=== PATIENT | female | born 1980 | race Two or more races ===

== ENCOUNTER 2017-07-13 09:10 | Observation (INO) | payer MEDICAID ==
[~2017-07-13] VITALS: Ht 160 cm; Wt 79.8 kg
[2017-07-13] MEDS ORDERED: HYDR250I6 IM (10:10)
[2017-07-13] MEDS ORDERED: PREN-96 PO (10:10)
[2017-07-13] MEDS ORDERED: BETAMETHASONE ACET (6MG/ML) 5ML VIAL IM ONE (10:30)
[2017-07-14] MEDS ORDERED: NIF10C PO (10:52)
== END 2017-07-13 10:55 | disposition home or self-care (01) | DRG 563 ==
LOC: LDRP 09:10
PROVIDERS: ADMIT Obstetrics & Gynecology; ATTEND Obstetrics & Gynecology
DX: O60.03 Preterm labor without delivery, third trimester (principal); O26.893 Other specified pregnancy related conditions, third trimester; N89.8 Other specified noninflammatory disorders of vagina; Z3A.31 31 weeks gestation of pregnancy
CPT/HCPCS: 59025; 76805; 81002; G0378; J0702; 96372

== ENCOUNTER 2017-07-14 10:15 | Observation (INO) | payer MEDICAID ==
[~2017-07-14 10:15] MED LIST: HYDR250I6 IM; PREN-96 PO
[2017-07-14] MEDS ORDERED: BETAMETHASONE ACET (6MG/ML) 5ML VIAL IM ONE (10:45)
[2017-07-14] MEDS ORDERED: NIF10C PO (10:52)
== END 2017-07-14 11:35 | disposition home or self-care (01) | DRG 563 ==
LOC: LDRP 10:15
PROVIDERS: ADMIT Obstetrics & Gynecology; ATTEND Obstetrics & Gynecology
DX: O60.03 Preterm labor without delivery, third trimester (principal); Z3A.30 30 weeks gestation of pregnancy
CPT/HCPCS: 59025; 81002; 96372; G0378

== ENCOUNTER 2017-07-21 10:45 | Observation (INO) | payer MEDICAID ==
[~2017-07-21 10:45] MED LIST changes: +NIF10C PO
== END 2017-07-21 11:45 | disposition home or self-care (01) | DRG 563 ==
LOC: LDRP 10:45
PROVIDERS: ADMIT Specialist; ATTEND Specialist
DX: O60.03 Preterm labor without delivery, third trimester (principal); Z3A.31 31 weeks gestation of pregnancy
CPT/HCPCS: 59025; 81002; G0378

== ENCOUNTER 2017-07-28 11:20 | Observation (INO) | payer MEDICAID | END 2017-07-28 12:55 | disposition home or self-care (01) | DRG 563 | LOC: LDRP 11:20 | PROVIDERS: ADMIT Specialist; ATTEND Specialist | DX: O60.03 Preterm labor without delivery, third trimester (principal); Z3A.32 32 weeks gestation of pregnancy | CPT/HCPCS: 59025; 76815; 81002; G0378 ==

== ENCOUNTER 2017-08-03 09:35 | Observation (INO) | payer MEDICAID | END 2017-08-03 10:50 | disposition home or self-care (01) | DRG 563 | LOC: LDRP 09:35 | PROVIDERS: ADMIT Specialist; ATTEND Specialist | DX: O60.03 Preterm labor without delivery, third trimester (principal); Z3A.32 32 weeks gestation of pregnancy | CPT/HCPCS: 59025; 81002; G0378 ==

== ENCOUNTER 2017-08-10 09:00 | Observation (INO) | payer MEDICAID | END 2017-08-10 10:03 | disposition home or self-care (01) | DRG 563 | LOC: LDRP 09:00 | PROVIDERS: ADMIT Specialist; ATTEND Specialist | DX: O60.03 Preterm labor without delivery, third trimester (principal); Z3A.33 33 weeks gestation of pregnancy | CPT/HCPCS: 59025; 81002; G0378 ==

== ENCOUNTER 2017-08-17 09:55 | Observation (INO) | payer MEDICAID | END 2017-08-17 10:35 | disposition home or self-care (01) | DRG 563 | LOC: LDRP 09:55 | PROVIDERS: ADMIT Obstetrics & Gynecology; ATTEND Obstetrics & Gynecology | DX: O60.03 Preterm labor without delivery, third trimester (principal); O09.523 Supervision of elderly multigravida, third trimester; Z3A.34 34 weeks gestation of pregnancy | CPT/HCPCS: 59025; 81002; G0378 ==

== ENCOUNTER 2017-08-24 09:05 | Observation (INO) | payer MEDICAID | END 2017-08-24 10:00 | disposition home or self-care (01) | DRG 563 | LOC: LDRP 09:05 | PROVIDERS: ADMIT Specialist; ATTEND Specialist | DX: O60.03 Preterm labor without delivery, third trimester (principal); O26.893 Other specified pregnancy related conditions, third trimester; N89.8 Other specified noninflammatory disorders of vagina; Z3A.35 35 weeks gestation of pregnancy | CPT/HCPCS: 59025; 81002; G0378 ==

== ENCOUNTER 2017-08-28 09:05 | Observation (INO) | payer MEDICAID | END 2017-08-28 10:05 | disposition home or self-care (01) | DRG 563 | LOC: LDRP 09:05 | PROVIDERS: ADMIT Obstetrics & Gynecology; ATTEND Obstetrics & Gynecology | DX: O60.03 Preterm labor without delivery, third trimester (principal); O09.523 Supervision of elderly multigravida, third trimester; Z3A.36 36 weeks gestation of pregnancy | CPT/HCPCS: 59025; 81002; G0378 ==

== ENCOUNTER 2017-09-04 09:05 | Observation (INO) | payer MEDICAID | END 2017-09-04 13:25 | disposition home or self-care (01) | DRG 566 | LOC: LDRP 09:05 | PROVIDERS: ADMIT Specialist; ATTEND Specialist | DX: O36.8130 Decreased fetal movements, third trimester, not applicable or unspecified (principal); O09.523 Supervision of elderly multigravida, third trimester; Z3A.37 37 weeks gestation of pregnancy | CPT/HCPCS: 59025; 76815; 76818; 81002; G0378 ==

== ENCOUNTER 2017-09-05 09:00 | Observation (INO) | payer MEDICAID | END 2017-09-05 10:45 | disposition home or self-care (01) | DRG 566 | LOC: LDRP 09:00 | PROVIDERS: ADMIT Obstetrics & Gynecology; ATTEND Obstetrics & Gynecology | DX: O41.03X0 Oligohydramnios, third trimester, not applicable or unspecified (principal); O09.523 Supervision of elderly multigravida, third trimester; Z3A.37 37 weeks gestation of pregnancy | CPT/HCPCS: 59025; 76818; 81002; G0378 ==

== ENCOUNTER 2017-09-06 08:00 | Observation (INO) | payer MEDICAID | END 2017-09-06 09:00 | disposition home or self-care (01) | DRG 563 | LOC: LDRP 08:00 | PROVIDERS: ADMIT Specialist; ATTEND Specialist | DX: O60.03 Preterm labor without delivery, third trimester (principal); O09.523 Supervision of elderly multigravida, third trimester; Z3A.37 37 weeks gestation of pregnancy | CPT/HCPCS: 59025; 76815; 81002; G0378 ==

== ENCOUNTER 2017-09-07 08:05 | Observation (INO) | payer MEDICAID ==
[~2017-09-07] VITALS: Ht 167.6 cm; Wt 86.2 kg
[~2017-09-07 08:05] MED LIST changes: -HYDR250I6 IM; -NIF10C PO
[2017-09-07] MEDS ORDERED: LACTATED RINGER'S 1,000 ML IV ONE (09:25)
== END 2017-09-07 10:25 | disposition home or self-care (01) | DRG 566 ==
LOC: LDRP 08:05
PROVIDERS: ADMIT Specialist; ATTEND Specialist
DX: O26.893 Other specified pregnancy related conditions, third trimester (principal); O09.523 Supervision of elderly multigravida, third trimester; M54.9 Dorsalgia, unspecified; Z3A.37 37 weeks gestation of pregnancy
CPT/HCPCS: 59025; 76815; 81002; 96360; G0378; 96365; 96366

== ENCOUNTER 2017-09-08 08:05 | Observation (INO) | payer MEDICAID | END 2017-09-08 10:25 | disposition home or self-care (01) | DRG 566 | LOC: LDRP 08:05 | PROVIDERS: ADMIT Specialist; ATTEND Specialist | DX: O41.03X0 Oligohydramnios, third trimester, not applicable or unspecified (principal); Z3A.38 38 weeks gestation of pregnancy | CPT/HCPCS: 76815; G0378; 59025; 81002 ==

== ENCOUNTER 2017-09-09 08:06 | Observation (INO) | payer MEDICAID | END 2017-09-09 10:12 | disposition home or self-care (01) | DRG 566 | LOC: LDRP 08:06 | PROVIDERS: ADMIT Specialist; ATTEND Specialist | DX: O62.9 Abnormality of forces of labor, unspecified (principal); O26.893 Other specified pregnancy related conditions, third trimester; N89.8 Other specified noninflammatory disorders of vagina; O09.523 Supervision of elderly multigravida, third trimester; Z3A.38 38 weeks gestation of pregnancy | CPT/HCPCS: 59025; 76815; 81002; G0378 ==